=== PATIENT | male | born 1965 | race Caucasian/White ===

== ENCOUNTER 2019-04-20 17:27 | Emergency (ER) | payer BC ==
[~2019-04-20] VITALS: Ht 165.1 cm; Wt 75.8 kg
--- OUTSIDE RECORDS SUMMARY | ~2019-04-20 | XMS | Encounter Summary ---
Demographics + + + | Address | [address] | | | [place] [address] | + + + | Home Phone | | + + + | Preferred Language | Unknown | + + + | Marital Status | Single | + + + | Presybeterian Affiliation | Unknown | + + + | Race | Unknown | + + + | Ethnic Group | Unknown | + + + Author + + + | Author | [facility] | | | and [place] | + + + | Organization | [facility] | | | and [place] | + + + | Address | Unknown | + + + | Phone | Unavailable | + + + Support + + + + + | Name | Relationship | Address | Phone | + + + + + | Ariane Holden | ECON | [address] | | | | | [place] | | | | | [address] | | + + + + + Care Team Providers + +------+ + | Care Executive Search Consultant Name | Role | Phone | + +------+ + | Dane Perea MD | PCP | | + +------+ + Encounter Details +--------+ + + + + | Date | Type | Department | Care Team | Description | +--------+ + + + + | 01/05/ | Documentati | [facility] | Mehrdad, | | | 2019 | on | NEPHROLOGY [place] | [facility] | | | | | [address] | [employer] | | | | | [address] [place], [place] | | | | | | [address] | | | | | | [phone] | | | +--------+ + + + + Social History + +-------+ +--------+------+ | Tobacco Use | Types | Packs/Day | Years | Date | | | | | Used | | + +-------+ +--------+------+ | Never Smoker | | | | | + +-------+ +--------+------+ + + + | Sex Assigned at | Date Recorded | | | | + + + | Not on file | | + + + + + + + | Job Start Date | Occupation | Industry | + + + + | Not on file | Not on file | Not on file | + + + + + + + + | Travel History | Travel Start | Travel End | + + + + + + | No recent travel history available. | + + documented as of this encounter Plan of Treatment Not on filedocumented as of this encounter Procedures + +--------+ + + + | Procedure Name | Priori | Date/Time | Associated Diagnosis | Comments | | | ty | | | | + +--------+ + + + | URIC ACID | Routin | 05/12/2018 | | | | | e | 9:26 AM | | | | | | PST | | | + +--------+ + + + documented in this encounter Results Uric Acid (05/12/2018 9:26 AM PST) + +-------+ + + + | Component | Value | Ref Range | Performed | Pathologist | | | | | At | Signature | + +-------+ + + + | URIC ACID | | | | | | (REF) | | | | | + +-------+ + + + + + | Specimen | + + | Blood | + + documented in this encounter Visit Diagnoses Not on filedocumented in this encounter"
--- OUTSIDE RECORDS SUMMARY | ~2019-04-20 | XMS | Clinical Summary ---
Demographics + + + | Address | [address] | | | [place] [address] | + + + | Home Phone | | + + + | Preferred Language | Unknown | + + + | Marital Status | Single | + + + | Voodoo Affiliation | Unknown | + + + | Race | Unknown | + + + | Ethnic Group | Unknown | + + + Author + + + | Author | [facility] | | | and [place] | + + + | Organization | [facility] | | | and [place] | + + + | Address | Unknown | + + + | Phone | Unavailable | + + + Support + + + + + | Name | Relationship | Address | Phone | + + + + + | Ariane Holden | ECON | [address] | | | | | [place] | | | | | [address] | | + + + + + Care Team Providers + +------+ + | Care Database Software Technician Name | Role | Phone | + +------+ + | Dane Perea MD | PCP | | + +------+ + Allergies No Known Allergies Medications + + + +---------+------+------+-------+ | Medication | Sig | Dispensed | Refills | Star | End | Statu | | | | | | t | Date | s | | | | | | Date | | | + + + +---------+------+------+-------+ | lisinopril | | | 0 | 10/2 | | Activ | | (PRINIVIL, ZESTRIL) | | | | 5/20 | | e | | 20 mg tablet | | | | 17 | | | + + + +---------+------+------+-------+ | metFORMIN | | | 0 | 09/0 | | Activ | | (GLUCOPHAGE) 1000 MG | | | | 1/20 | | e | | tablet | | | | 17 | | | + + + +---------+------+------+-------+ | traZODone | | | 0 | 09/2 | | Activ | | (DESYREL) 50 mg | | | | 9/20 | | e | | tablet | | | | 17 | | | + + + +---------+------+------+-------+ | indomethacin | Take 50 mg by mouth | | 0 | 11/0 | | Activ | | (INDOCIN) 50 MG | 2 (two) times daily | | | 6/20 | | e | | capsule | with meals. | | | 17 | | | + + + +---------+------+------+-------+ | ascorbic acid | Take 1,000 mg by | | 0 | 11/0 | | Activ | | (VITAMIN C) 1000 MG | mouth daily. | | | 6/20 | | e | | tablet | | | | 17 | | | + + + +---------+------+------+-------+ | allopurinol | Take 1 tablet by | 180 | 3 | 11/0 | | Activ | | (ZYLOPRIM) 100 mg | mouth 2 (two) times | tablet | | 6/20 | | e | | tablet | daily. | | | 17 | | | + + + +---------+------+------+-------+ | diclofenac | Apply 2 g topically | | 0 | 12/3 | | Activ | | (VOLTAREN) 1% GEL | 4 times daily. | | | 1/20 | | e | | | | | | 18 | | | + + + +---------+------+------+-------+ | LANTUS SOLOSTAR | inject UP TO 22 | | 0 | 05/1 | | Activ | | 100 UNIT/ML | units subcutaneously | | | 3/20 | | e | | injection (pen) | daily as directed | | | 19 | | | + + + +---------+------+------+-------+ | mometasone | Apply topically | | 0 | | | Activ | | (ELOCON) 0.1 % cream | Daily. | | | | | e | + + + +---------+------+------+-------+ | oxyCODONE HCl | Take 5 mg by mouth. | | 0 | | | Activ | | (OXYCONTIN PO) | | | | | | e | + + + +---------+------+------+-------+ Active Problems + + + | Problem | Noted Date | + + + | Diabetic nephropathy associated with type 2 diabetes mellitus | 11/15/2018 | + + + | Benign essential hypertension | 09/21/2017 | + + + | Fatigue | 03/24/2016 | + + + | Type 2 diabetes mellitus | 08/20/2015 | + + + Encounters +--------+ + + + + | Date | Type | Specialty | Care Team | Description | +--------+ + + + + | 04/08/ | Telephone | Nephrology | Mehrdad, | Other (Appointment | | 2018 | | | Maryjane Burton | reminder call ) | | | | | Mechanical Detailer | | +--------+ + + + + from Last 3 Months Social History + +-------+ +--------+------+ | Tobacco Use | Types | Packs/Day | Years | Date | | | | | Used | | + +-------+ +--------+------+ | Never Smoker | | | | | + +-------+ +--------+------+ + +---+---+---+ | Smokeless Tobacco: | | | | | Never Used | | | | + +---+---+---+ + + | Tobacco Cessation: Counseling Given: No | + + + + +---------+ + | Alcohol Use | Drinks/Week | oz/Week | Comments | + + +---------+ + | Not Currently | | | | + + +---------+ + + + + | Sex Assigned at [...] recent travel history available. | + + Last Filed Vital Signs + + + + + | Vital Sign | Reading | Time Taken | Comments | + + + + + | Blood Pressure | 98/64 | 01/10/2019 9:50 AM | | | | | PDT | | + + + + + | Pulse | 84 | 01/10/2019 9:50 AM | | | | | PDT | | + + + + + | Temperature | 36.4 C (97.6 F) | 03/23/2017 12:21 PM | | | | | PST | | + + + + + | Respiratory Rate | - | - | | + + + + + | Oxygen Saturation | - | - | | + + + + + | Inhaled Oxygen | - | - | | | Concentration | | | | + + + + + | Weight | 80.4 kg (177 lb 3.2 | 01/10/2019 9:50 AM | | | | oz) | PDT | | + + + + + | Height | 167.6 cm (5' 6") | 01/10/2019 9:50 AM | | | | | PDT | | + + + + + | Body Mass Index | 28.6 | 01/10/2019 9:50 AM | | | | | PDT | | + + + + + Plan of Treatment + + + + + | Health Maintenance | Due Date | Last Done | Comments | + + + + + | Hepatitis C | | | | | Screening | 5 | | | + + + + + | Vaccine: | | | | | Pneumococcal 19-64 | 1 | | | | (1 of 1 - PPSV23) | | | | + + + + + | Diabetic Eye Exam | | | | | | 3 | | | + + + + + | Diabetic Foot Exam | | | | | | 3 | | | + + + + + | Vaccine: | | | | | Dtap/Tdap/Td (1 - | 4 | | | | Tdap) | | | | + + + + + | Colorectal Cancer | | | | | Screening | 5 | | | | (Colonoscopy) | | | | + + + + + | Vaccine: Zoster (1 | | | | | of 2) | 5 | | | + + + + + | Hemoglobin A1c | | 02/13/2017 | | | Screening | 7 | | | + + + + + | Statin Therapy | | | | | (optimal intensity) | 9 | | | + + + + + | Vaccine: Influenza | | 03/05/2016, 03/05/2016 | | | (#1) | 9 | | | + + + + + Results Not on filefrom Last 3 Months Insurance +-------+--------+ +--------+-------+---------+------+ | Payer | Benefi | Subscriber | Effect | Phone | Address | Type | | | t Plan | ID | tanner | | | | | | / | | Dates | | | | | | Group | | | | | | +-------+--------+ +--------+-------+---------+------+ | BCBS | BCBS | [id number] | 05/18/19 | | | PPO | | | FEDERA | | 16-Pre | | | | | | L FEP | | sent | | | | +-------+--------+ +--------+-------+---------+------+ + +--------+ +--------+ + + | Guarantor Name | Accoun | Relation to | Date | Phone | Billing Address | | | t Type | Patient | of | | | | | | | | | | + +--------+ +--------+ + + | JaileneCole | Person | Self [birth year] | [address] | | | [place] | | 1966 | [phone] | [place] | | | [place] | | | [address] (Home) | [address] | + +--------+ +--------+ + + Advance Directives + + + + + | Type | Date Recorded | Patient | Explanation | | | | Deputy Brand Inspector | | + + + + + | Power of | | | | | Supervisor Product Inspection | | | | + + + + + | Advance | | | | | Directive | | | | + + + + +
--- OUTSIDE RECORDS SUMMARY | ~2019-04-20 | XMS | Encounter Summary ---
Demographics + + + | Address | [address] | | | [place] [address] | + + + | Home Phone | | + + + | Preferred Language | Unknown | + + + | Marital Status | Single | + + + | Mormon Affiliation | Unknown | + + + | Race | Unknown | + + + | Ethnic Group | Unknown | + + + Author + + + | Author | [facility] | | | and [place] | + + + | Organization | [facility] | | | [...] [place] | | | | | [address] | | + + + + + Care Team Providers + +------+ + | Care Noteman Name | Role | Phone | + +------+ + | Dane Perea MD | PCP | | + +------+ + Reason for Visit +--------+ + | Reason | Comments | +--------+ + | Other | | +--------+ + Encounter Details +--------+ + + + + | Date | Type | Department | Care Team | Description | +--------+ + + + + | 01/05/ | Telephone | [facility] | Cole Granda MD | Other | | 2019 | | [place]PHROLOG[place] | [address] [place] | | | | | [address] [place] | [address] [facility] [place] | | | | | [address] [facility] [place] | [address] | | | | | [address] | | | | | | [phone] | | | +--------+ + + + [...] Not on filedocumented as of this encounter Visit Diagnoses Not on filedocumented in this encounter"
--- OUTSIDE RECORDS SUMMARY | ~2019-04-20 | XMS | Encounter Summary ---
Demographics + + + | Address | [address] | | | [place] [address] | + + + | Home Phone | | + + + | Preferred Language | Unknown | + + + | Marital Status | Single | + + + | Christianity Affiliation | Unknown | + + + | Race | Unknown | + + + | Ethnic Group | Unknown | + + + Author + + + | Author | [facility] | | | and [place] | + + + | Organization | [facility] | | | [...] [place] | | | | | [address] | | + + + + + Care Team Providers + +------+ + | Care Neuro Psych Sales Specialist Name | Role | Phone | + +------+ + | Dane Perea MD | PCP | | + +------+ + Encounter Details +--------+ + + + + | Date | Type | Department | Care Team | Description | +--------+ + + + + | 02/13/ | Orders Only | [facility] | Conversion | | | 2016 | | NEPHROLOGY [place] | Transaction, | | | | | [address] [place] | Provider Unknown | | | | | [address] [place], [place] | | | | | | [address] | (Fax) | | | | | [phone] | | | +--------+ + + + + Social History + +-------+ +--------+------+ | Tobacco Use | Types | Packs/Day | Years | Date | | | | | Used | | + +-------+ +--------+------+ | Never Assessed | | | | | + +-------+ [...] | + +--------+ + + + | LIPID PANEL | Routin | 02/13/2017 | | Results for this | | | e | 8:50 AM | | procedure are in the | | | | PDT | | results section. | + +--------+ + + + | VITAMIN B-12 | Routin | 02/13/2017 | | Results for this | | | e | 8:50 AM | | procedure are in the | | | | PDT | | results section. | + +--------+ + + + | URIC ACID | Routin | 02/13/2017 | | Results for this | | | e | 8:50 AM | | procedure are in the | | | | PDT | | results section. | + +--------+ + + + | TSH | Routin | 02/13/2017 | | Results for this | | | e | 8:50 AM | | procedure are in the | | | | PDT | | results section. | + +--------+ + + + | T4, FREE | Routin | 02/13/2017 | | Results for this | | | e | 8:50 AM | | procedure are in the | | | | PDT | | results section. | + +--------+ + + + | HEMOGLOBIN A1C | Routin | 02/13/2017 | | Results for this | | | e | 8:50 AM | | procedure are in the | | | | PDT | | results section. | + +--------+ + + + | COMPREHENSIVE | Routin | 02/13/2017 | | Results for this | | METABOLIC PANEL | e | 8:50 AM | | procedure are in the | | | | PDT | | results section. | + +--------+ + + + documented in this encounter Results Uric Acid (02/13/2017 8:50 AM PDT) + +---------+ + + + | Component | Value | Ref Range | Performed | Pathologist | | | | | At | Signature | + +---------+ + + + | Uric Acid | 8.8 (A) | 4.4 - 7.6 | EXTERNAL | | | | | | LAB | | + +---------+ + + + + + | Specimen | + + | Blood specimen | | (specimen) | + + + +---------+ + + | Performing | Address | City/State/Zipcode | Phone Number | | Organization | | | | + +---------+ + + | EXTERNAL LAB | | | | + +---------+ + + TSH (02/13/2017 8:50 AM PDT) + +-------+ + + + | Component | Value | Ref Range | Performed | Pathologist | | | | | At | Signature | + +-------+ + + + | TSI | 1.18 | 0.270 - 4.20 | EXTERNAL | | | | | uIU/mL | LAB | | + +-------+ + + + + + | Specimen | + + | Blood specimen | | (specimen) | + + + +---------+ + + | Performing | Address | City/State/Zipcode | Phone Number | | Organization | | | | + +---------+ + + | EXTERNAL LAB | | | | + +---------+ + + T4, Free (02/13/2017 8:50 AM PDT) + +-------+ + + + | Component | Value | Ref Range | Performed | Pathologist | | | | | At | Signature | + +-------+ + + + | FREE T4 | 1.25 | 0.71 - 1.7 | EXTERNAL | | | (REF) | | | LAB | | + +-------+ + + + + + | Specimen | + + | Blood specimen | | (specimen) | + + + +---------+ + + | Performing | Address | City/State/Zipcode | Phone Number | | Organization | | | | + +---------+ + + | EXTERNAL LAB | | | | + +---------+ + + Hemoglobin A1C (02/13/2017 8:50 AM PDT) + + + + + + | Component | Value | Ref Range | Performed | Pathologist | | | | | At | Signature | + + + + + + | Hemoglobin | 10.2 (A) | 4.4 - 6.5 % | EXTERNAL | | | A1c | | | LAB | | + + + + + + + + | Specimen | + + | Blood specimen | | (specimen) | + + + +---------+ + + | Performing | Address | City/State/Zipcode | Phone Number | | Organization | | | | + +---------+ + + | EXTERNAL LAB | | | | + +---------+ + + Vitamin B-12 (02/13/2017 8:50 AM PDT) + +-------+ + + + | Component | Value | Ref Range | Performed | Pathologist | | | | | At | Signature | + +-------+ + + + | VITAMIN | 358.7 | 211 - 946 | EXTERNAL | | | B-12 | | | LAB | | + +-------+ + + + + + | Specimen | + + | Blood specimen | | (specimen) | + + + +---------+ + + | Performing | Address | City/State/Zipcode | Phone Number | | Organization | | | | + +---------+ + + | EXTERNAL LAB | | | | + +---------+ + + Lipid Panel (02/13/2017 8:50 AM PDT) + +---------+ + + + | Component | Value | Ref Range | Performed | Pathologist | | | | | At | Signature | + +---------+ + + + | Cholesterol | 193 | mg/dL | EXTERNAL | | | | | | LAB | | + +---------+ + + + | Triglycerid | 263 (A) | 30 - 150 mg/dL | EXTERNAL | | | es | | | LAB | | + +---------+ + + + | HDL | 59.3 | mg/dl | EXTERNAL | | | | | | LAB | | + +---------+ + + + | LDL | 81 | mg/dL | EXTERNAL | | | Cholesterol | | | LAB | | | , | | | | | | Calculated, | | | | | | External | | | | | + +---------+ + + + | LDl/HDL | | | EXTERNAL | | | Ratio | | | LAB | | + +---------+ + + + | Chol/HDL | 3.3 | | EXTERNAL | | | Ratio | | | LAB | | + +---------+ + + + | VLDL | 53 (A) | 4 - 40 mg/dL | EXTERNAL | | | | | | LAB | | + +---------+ + + + | Non HDL | 134 | | EXTERNAL | | | Chol. | | | LAB | | | (LDL+VLDL) | | | | | + +---------+ + + + + + | Specimen | + + | Blood specimen | | (specimen) | + + + +---------+ + + | Performing | Address | City/State/Zipcode | Phone Number | | Organization | | | | + +---------+ + + | EXTERNAL LAB | | | | + +---------+ + + Comprehensive Metabolic Panel (02/13/2017 8:50 AM PDT) + + + + + + | Component | Value | Ref Range | Performed | Pathologist | | | | | At | Signature | + + + + + + | Glucose, | 200 (A) | 70 - 100 mg/dL | EXTERNAL | | | Fasting | | | LAB | | + + + + + + | BUN | 19 | 6 - 23 mg/dL | EXTERNAL | | | | | | LAB | | + + + + + + | Creatinine | 1.42 (A) | 0.70 - 1.33 | EXTERNAL | | | | | mg/dL | LAB | | + + + + + + | BUN/Creatin | 13.4 | 6.0 - 28.6 | EXTERNAL | | | ine Ratio | | | LAB | | + + + + + + | Calcium | 9.8 | 8.4 - 10.2 | EXTERNAL | | | | | mg/dL | LAB | | + + + + + + | Protein, | 7.2 | 6.0 - 8.0 g/dL | EXTERNAL | | | Total | | | LAB | | + + + + + + | Albumin | 4.6 | 3.5 - 5.0 | EXTERNAL | | | | | | LAB | | + + + + + + | Globulin | 2.7 | 1.8 - 3.5 | EXTERNAL | | | | | | LAB | | + + + + + + | A/G Ratio | 1.7 | 1.1 - 2.4 | EXTERNAL | | | | | | LAB | | + + + + + + | Bilirubin | 0.4 | 0.0 - 1.2 mg/dL | EXTERNAL | | | Total | | | LAB | | + + + + + + | ALP, | 39 | 31 - 120 | EXTERNAL | | | External | | | LAB | | + + + + + + | ALT | 30 | 7 - 52 U/L | EXTERNAL | | | | | | LAB | | + + + + + + | AST | 25 | 13 - 39 U/L | EXTERNAL | | | | | | LAB | | + + + + + + | Na | 140 | 132 - 143 | EXTERNAL | | | | | mmol/L | LAB | | + + + + + + | K | 4.5 | 3.6 - 5.1 | EXTERNAL | | | | | mmol/L | LAB | | + + + + + + | Cl | 103 | 95 - 112 mmol/L | EXTERNAL | | | | | | LAB | | + + + + + + | CO2 | 23 | 19 - 31 mmol/L | EXTERNAL | | | | | | LAB | | + + + + + + | Anion Gap | 18.5 | 7 - 21 mmol/L | EXTERNAL | | | | | | LAB | | + + + + + + | Estimated | 52 (A) | 60 mg/dL | EXTERNAL | | | GFR | | | LAB | | + + + + + + + + | Specimen | + + | Blood specimen | | (specimen) | + + + +---------+ + + | Performing | Address | City/State/Zipcode | Phone Number | | Organization | | | | + +---------+ + + | EXTERNAL LAB | | | | + +---------+ + + documented in this encounter Visit Diagnoses Not on filedocumented in this encounter"
--- OUTSIDE RECORDS SUMMARY | ~2019-04-20 | XMS | Encounter Summary ---
Demographics + + + | Address | [address] | | | [place] [address] | + + + | Home Phone | | + + + | Preferred Language | Unknown | + + + | Marital Status | Single | + + + | Faith Affiliation | Unknown | + + + | Race | Unknown | + + + | Ethnic Group | Unknown | + + + Author + + + | Author | [facility] | | | and [place] | + + + | Organization | [facility] | | | and [...] [place] | | | | | [address] | | + + + + + Care Team Providers + +------+ + | Care Billing Spec Name | Role | Phone | + +------+ + | Dane Perea MD | PCP | | + +------+ + Reason for Visit +--------+ + | Reason | Comments | +--------+ + | Other | | +--------+ + Encounter Details +--------+ + + + + | Date | Type | Department | Care Team | Description | +--------+ + + + + | 01/04/ | Telephone | [facility] | Cole Granda MD | Other | | 2019 | | NEPHROLOGY [place] | [address] [place] | | | | | [address] [place] | [address] [facility] [place] | | | | | [address] [facility] [place] | [address] | | | | | [address] | | | | | | [phone] | | | +--------+ + + + [...]
--- OUTSIDE RECORDS SUMMARY | ~2019-04-20 | XMS | Clinical Summary ---
Demographics + + + | Address | [address] | | | [place] [address] | + + + | Home Phone | | + + + | Preferred Language | Unknown | + + + | Marital Status | Unknown | + + + | Gnosticist Affiliation | Unknown | + + + | Race | Unknown | + + + | Ethnic Group | Unknown | + + + Author + + + | Author | [facility] (Historical as of | | | 01-01-19) | + + + | Organization | [facility] (Historical as of | | | 01-01-19) | + + + | Address | Unknown | + + + | Phone | Unavailable | + + + Support + + + + + | Name | Relationship | Address | Phone | + + + + + | No,Contact | ECON | [address] | | | | | [place] | | | | | [address] | | + + + + + Care Team Providers + +------+ + | Care Product Assurance Engineer Name | Role | Phone | + +------+ + | Dane Perea MD | PP | | + +------+ + Allergies No Known Allergies Current Medications + + +--------+---------+------+------+-------+ | Prescription | Sig. | Disp. | Refills | Star | End | Statu | | | | | | t | Date | s | | | | | | Date | | | + + +--------+---------+------+------+-------+ | lisinopril | | | | 10/2 | | Activ | | (ZESTRIL) 20 MG | | | | 5/20 | | e | | tablet | | | | 17 | | | + + +--------+---------+------+------+-------+ | metFORMIN | | | | 09/0 | | Activ | | (GLUCOPHAGE) 1000 MG | | | | 1/20 | | e | | tablet | | | | 17 | | | + + +--------+---------+------+------+-------+ | traZODone | | | | 09/2 | | Activ | | (DESYREL) 50 MG | | | | 9/20 | | e | | tablet | | | | 17 | | | + + +--------+---------+------+------+-------+ | indomethacin | Take 50 mg by mouth | | | | | Activ | | (INDOCIN) 50 MG | 2 (two) times daily | | | | | e | | capsule | with meals. | | | | | | + + +--------+---------+------+------+-------+ | ascorbic acid | Take 1,000 mg by | | | | | Activ | | (VITAMIN C) 1000 MG | mouth daily. | | | | | e | | tablet | | | | | | | + + +--------+---------+------+------+-------+ | allopurinol | Take 1 tablet by | 180 | 3 | 11/0 | | Activ | | (ZYLOPRIM) 100 MG | mouth 2 (two) times | tablet | | 6/20 | | e | | tablet | daily. | | | 17 | | | + + +--------+---------+------+------+-------+ | atorvastatin | Take 10 mg by mouth | | | | | Activ | | (LIPITOR) 10 MG | nightly. | | | | | e | | tablet | | | | | | | + + +--------+---------+------+------+-------+ | insulin glargine | Inject into the | | | | | Activ | | (LANTUS) 100 UNIT/ML | skin nightly. | | | | | e | | injection | | | | | | | + + +--------+---------+------+------+-------+ | mometasone | Apply topically | | | | | Activ | | (ELOCON) 0.1 % cream | daily. | | | | | e | + + +--------+---------+------+------+-------+ Active Problems No known active problems Social History + +-------+ +--------+------+ | Tobacco Use | Types | Packs/Day | Years | Date | | | | | Used | | + +-------+ +--------+------+ | Never Smoker | | | | | + +-------+ +--------+------+ + +---+---+---+ | Smokeless Tobacco: | | | | | Never Used | | | | + +---+---+---+ + + +---------+ + | Alcohol Use | Drinks/We | oz/Week | Comments | | | ek | | | + + +---------+ + | Yes | 1 Cans | 0.6 | | | | of beer | | | + + +---------+ + + + + | Sex Assigned at | Date Recorded | | | | + + + | Not on file | | + + + Last Filed Vital Signs + + + + | Vital Sign | Reading | Time Taken | + + + + | Blood Pressure | 125/83 | 03/23/2017 12:17 PM PST | + + + + | Pulse | 105 | 03/23/2017 12:17 PM PST | + + + + | Temperature | 36.4 C (97.6 F) | 03/23/2017 12:17 PM PST | + + + + | Respiratory Rate | - | - | + + + + | Oxygen Saturation | 98% | 03/23/2017 12:17 PM PST | + + + + | Inhaled Oxygen | - | - | | Concentration | | | + + + + | Weight | 85.8 kg (189 lb 1.6 | 03/23/2017 12:17 PM PST | | | oz) | | + + + + | Height | 167.6 cm (5' 6") | 03/23/2017 12:17 PM PST | + + + + | Body Mass Index | 30.52 | 03/23/2017 12:17 PM PST | + + + + Plan of Treatment + + + + + | Health Maintenance | Due Date | Last Done | Comments | + + + + + | Vaccine: | | | | | Dtap/Tdap/Td (1 - | 4 | | | | Tdap) | | | | + + + + + | Colon Cancer | | | | | Screening | 5 | | | | (Colonoscopy) | | | | + + + + + | Vaccine: Zoster (1 | | | | | of 2) | 5 | | | + + + + + | Vaccine: Influenza | | | | | (#1) | 9 | | | + + + + + Results Not on filefrom Last 3 Months Insurance +---------+--------+ +------+-------+ + | Payer | Benefi | Subscriber | Type | Phone | Address | | | t Plan | ID | | | | | | / | | | | | | | Group | | | | | +---------+--------+ +------+-------+ + | PREMERA | PREMER | [id number] | | | [address] [address] | | | A BLUE | | | | [place], [place] | | | [place] | | | | [phone] | | | FED | | | | | | | PPO | | | | | +---------+--------+ +------+-------+ + + +--------+ +--------+ + + | Guarantor Name | Accoun | Relation to | Date | Phone | Billing Address | | | t Type | Patient | of | | | | | | | | | | + +--------+ +--------+ + + | COLE LINN | Person | Self [birth year] Home: | [address] | | | [place] | | 1966 | [phone] [place] [address] | | | krystal | | | [phone] | | + +--------+ +--------+ + +
--- OUTSIDE RECORDS SUMMARY | ~2019-04-20 | XMS | Encounter Summary ---
Demographics + + + | Address | [address] | | | [place] [address] | + + + | Home Phone | | + + + | Preferred Language | Unknown | + + + | Marital Status | Single | + + + | Catholic Affiliation | Unknown | + + + | Race | Unknown | + + + | Ethnic Group | Unknown | + + + Author + + + | Author | [facility] | | | and [place] | + + + | Organization | [facility] | | | [...] [place] | | | | | [address] | | + + + + + Care Team Providers + +------+ + | Care Welder Helper Name | Role | Phone | + +------+ + | Dane Perea MD | PCP | | + +------+ + Encounter Details +--------+ + + + + | Date | Type | Department | Care Team | Description | +--------+ + + + + | 03/20/ | Orders Only | [facility] | Babatunde Da Silva, | | | 2016 | | NEPHROLOGY [place] | BAGGAGE CHECKER [address] | | | | | [address] [place] | [address] | | | | | [address] [place], [place] | [place] | | | | | [address] | [address] | | | | | [phone] | [phone] | | | | | | | | +--------+ + + + [...] | + +--------+ + + + | EXTERNAL LAB: CBC | Routin | 03/20/2017 | | Results for this | | | e | 9:13 AM | | procedure are in the | | | | PDT | | results section. | + +--------+ + + + | URINALYSIS WITH | Routin | 03/20/2017 | | Results for this | | MICROSCOPIC IF | e | 9:13 AM | | procedure are in the | | INDICATED | | PDT | | results section. | + +--------+ + + + | PROTEIN/CREATININE | Routin | 03/20/2017 | | Results for this | | RATIO, URINE | e | 9:13 AM | | procedure are in the | | | | PDT | | results section. | + +--------+ + + + | URIC ACID | Routin | 03/20/2017 | | Results for this | | | e | 9:13 AM | | procedure are in the | | | | PDT | | results section. | + +--------+ + + + | MAGNESIUM | Routin | 03/20/2017 | | Results for this | | | e | 9:13 AM | | procedure are in the | | | | PDT | | results section. | + +--------+ + + + | BASIC METABOLIC | Routin | 03/20/2017 | | Results for this | | PANEL | e | 9:13 AM | | procedure are in the | | | | PDT | | results section. | + +--------+ + + + documented in this encounter Results Protein/Creatinine Ratio, Urine (03/20/2017 9:13 AM PDT) + + + + + + | Component | Value | Ref Range | Performed | Pathologist | | | | | At | Signature | + + + + + + | Protein/Cre | 160.7 (A) | 0 - 150 | EXTERNAL | | | at Ratio | | | LAB | | + + + + + + + + | Specimen | + + | Urine specimen | | (specimen) | + + + +---------+ + + | Performing | Address | City/State/Zipcode | Phone Number | | Organization | | | | + +---------+ + + | EXTERNAL LAB | | | | + +---------+ + + Urinalysis with Microscopic if Indicated (03/20/2017 9:13 AM PDT) + + + + + + | Component | Value | Ref Range | Performed | Pathologist | | | | | At | Signature | + + + + + + | Color | Yellow | | EXTERNAL | | | | | | LAB | | + + + + + + | Clarity | Clear | | EXTERNAL | | | | | | LAB | | + + + + + + | Spec Grav, | 1.018 | 1.005 - 1.030 | EXTERNAL | | | Fluid | | | LAB | | + + + + + + | Leukocyte | Negative | | EXTERNAL | | | Esterase, | | | LAB | | | Urine | | | | | + + + + + + | Nitrite, | Negative | | EXTERNAL | | | Urine | | | LAB | | + + + + + + | Urobilinoge | Normal | | EXTERNAL | | | n, Urine | | | LAB | | + + + + + + | Total | Negative | | EXTERNAL | | | Protein | | | LAB | | + + + + + + | pH, Urine | 5 | 5 - 9 | EXTERNAL | | | | | | LAB | | + + + + + + | Blood, | Negative | | EXTERNAL | | | Urine | | | LAB | | + + + + + + | Ketones | Negative | | EXTERNAL | | | | | | LAB | | + + + + + + | Bilirubin, | Negative | | EXTERNAL | | | Urine | | | LAB | | + + + + + + | Glucose, | Comment: 50 | | EXTERNAL | | | Urine | | | LAB | | + + + + + + + + | Specimen | + + | Urine specimen | | (specimen) | + + + +---------+ + + | Performing | Address | City/State/Zipcode | Phone Number | | Organization | | | | + +---------+ + + | EXTERNAL LAB | | | | + +---------+ + + External Lab: CBC (03/20/2017 9:13 AM PDT) + +-------+ + + + | Component | Value | Ref Range | Performed | Pathologist | | | | | At | Signature | + +-------+ + + + | WBC | 8.4 | 4.5 - 11.0 10 | EXTERNAL | | | | | | LAB | | + +-------+ + + + | RED CELL | 4.41 | 4.3 - 5.7 10 | EXTERNAL | | | COUNT | | | LAB | | + +-------+ + + + | Hgb | 13.7 | 13.5 - 18.0 | EXTERNAL | | | | | g/dL | LAB | | + +-------+ + + + | Hematocrit, | 41.0 | 41 - 50 % | EXTERNAL | | | POC | | | LAB | | + +-------+ + + + | MCV | 92.9 | 81 - 99 fL | EXTERNAL | | | | | | LAB | | + +-------+ + + + | MCH | 31 | 27 - 33 pg | EXTERNAL | | | | | | LAB | | + +-------+ + + + | MCHC | 33 | 30 - 36 g/dL | EXTERNAL | | | | | | LAB | | + +-------+ + + + | Platelet | 215 | 140 - 440 K/ L | EXTERNAL | | | Count | | | LAB | | | Plasma | | | | | + +-------+ + + + | RDW-CV | 13.1 | 10.5 - 15.0 % | EXTERNAL | | | | | | LAB | | + +-------+ + + + | MPV | | fL | EXTERNAL | | | | | | LAB | | + +-------+ + + + | Differentia | | | EXTERNAL | | | l Type | | | LAB | | + +-------+ + + + | % Segmented | | % | EXTERNAL | | | | | | LAB | | | Neutrophils | | | | | + +-------+ + + + | % | | % | EXTERNAL | | | Lymphocytes | | | LAB | | + +-------+ + + + | % Monocytes | | % | EXTERNAL | | | | | | LAB | | + +-------+ + + + | % | | % | EXTERNAL | | | Eosinophils | | | LAB | | + +-------+ + + + | % Basophils | | % | EXTERNAL | | | | | | LAB | | + +-------+ + + + | Absolute | | / L | EXTERNAL | | | Segmented | | | LAB | | | Neutrophils | | | | | + +-------+ + + + | Absolute | | / L | EXTERNAL | | | Lymphocytes | | | LAB | | + +-------+ + + + | Absolute | | / L | EXTERNAL | | | Monocytes | | | LAB | | + +-------+ + + + | Absolute | | / L | EXTERNAL | | | Eosinophils | | | LAB | | + +-------+ + + + | Absolute | | / L | EXTERNAL | | | Basophils | | | LAB | | + +-------+ + + + + + | Specimen | + + | Blood specimen | | (specimen) | + + + +---------+ + + | Performing | Address | City/State/Zipcode | Phone Number | | Organization | | | | + +---------+ + + | EXTERNAL LAB | | | | + +---------+ + + Uric Acid (03/20/2017 9:13 AM PDT) + +---------+ + + + | Component | Value | Ref Range | Performed | Pathologist | | | | | At | Signature | + +---------+ + + + | Uric Acid | 9.2 (A) | 4.4 - 7.6 | EXTERNAL [...] | | | + +---------+ + + Magnesium (03/20/2017 9:13 AM PDT) + +-------+ + + + | Component | Value | Ref Range | Performed | Pathologist | | | | | At | Signature | + +-------+ + + + | Magnesium | 1.7 | 1.7 - 2.5 mg/dL | EXTERNAL | | | | [...] | | | + +---------+ + + Basic Metabolic Panel (03/20/2017 9:13 AM PDT) + + + + + + | Component | Value | Ref Range | Performed | Pathologist | | | | | At | Signature | + + + + + + | Glucose, | 182 (A) | 70 - 100 mg/dL | EXTERNAL | | | Fasting | | | LAB | | + + + + + + | BUN | 20 | 6 - 23 mg/dL | EXTERNAL | | | | | | LAB | | + + + + + + | Creatinine | 1.40 (A) | 0.70 - 1.33 | EXTERNAL | | | | | mg/dL | LAB | | + + + + + + | BUN/Creatin | 14.3 | 6.0 - 28.6 | EXTERNAL | | | ine Ratio | | | LAB | | + + + + + + | Calcium | 10.0 | 8.4 - 10.2 | EXTERNAL | | | | | mg/dL | LAB | | + + + + + + | Na | 141 | 132 - 143 | EXTERNAL | | | | | mmol/L | LAB | | + + + + + + | K | 4.6 | 3.6 - 5.1 | EXTERNAL | | | | | mmol/L | LAB | | + + + + + + | Cl | 106 | 95 - 112 mmol/L | EXTERNAL | | | | | | LAB | | + + + + + + | CO2 | 21 | 19 - 31 mmol/L | EXTERNAL | | | | | | LAB | | + + + + + + | Anion Gap | 18.6 | 7 - 21 mmol/L | EXTERNAL | | | | | | LAB | | + + + + + + | Estimated | 53 | mg/dL | EXTERNAL | | | GFR [...]
--- OUTSIDE RECORDS SUMMARY | ~2019-04-20 | XMS | Encounter Summary ---
Demographics + + + | Address | [address] | | | [place] [address] | + + + | Home Phone | | + + + | Preferred Language | Unknown | + + + | Marital Status | Single | + + + | Hinduism Affiliation | Unknown | + + + | Race | Unknown | + + + | Ethnic Group | Unknown | + + + Author + + + | Author | [facility] | | | and [place] | + + + | Organization | [facility] | | | [...] [place] | | | | | [address] | | + + + + + Care Team Providers + +------+ + | Care Print Finisher Name | Role | Phone | + [...] + + | 01/05/ | Telephone | [facility] | Cole Granda MD | Other | | 2019 | | NEPHROLOGY [place] | [address] [place] | | | | | [address] [place] | [address] [facility], [place] | | | | | [address] [facility], [place] | [address] | | | | | [address] | | | | | | [phone] | | | +--------+ + + + [...] as of this encounter Plan of Treatment + +------+--------+ + + | Name | Type | Priori | Associated Diagnoses | Order Schedule | | | | ty | | | + +------+--------+ + + | Microalbumin/Creatin | Lab | Routin | Chronic kidney | Expected: | | ine Ratio, Urine | | e | disease, stage III | 01/06/2019, Expires: | | | | | (moderate) ([facility]) | 01/06/2020 | + +------+--------+ + + | Urinalysis With | Lab | Routin | Chronic kidney | Expected: | | Microscopic | | e | disease, stage III | 01/06/2019, Expires: | | | | | (moderate) ([facility]) | 01/06/2020 | + +------+--------+ + + | Uric Acid | Lab | Routin | Chronic kidney | Expected: | | | | e | disease, stage III | 01/06/2019, Expires: | | | | | (moderate) ([facility]) | 01/06/2020 | + +------+--------+ + + | CBC w/ Auto | Lab | Routin | Chronic kidney | Expected: | | Differential | | e | disease, stage III | 01/06/2019, Expires: | | | | | (moderate) ([facility]) | 01/06/2020 | + +------+--------+ + + | Renal Function Panel | Lab | Routin | Chronic kidney | Expected: | | | | e | disease, stage III | 01/06/2019, Expires: | | | | | (moderate) ([facility]) | 01/06/2020 | + +------+--------+ + + | Parathyroid Hormone, | Lab | Routin | Chronic kidney | Expected: | | Intact | | e | disease, stage III | 01/06/2019, Expires: | | | | | (moderate) ([facility]) | 01/06/2020 | + +------+--------+ + + | Magnesium | Lab | Routin | Chronic kidney | Expected: | | | | e | disease, stage III | 01/06/2019, Expires: | | | | | (moderate) ([facility]) | 01/06/2020 | + +------+--------+ + + documented as of this encounter Visit Diagnoses + + | Diagnosis | + + | Chronic kidney disease, stage III (moderate) ([facility]) - Primary Chronic kidney disease, | | Stage III (moderate) | + + documented in this encounter"
--- OUTSIDE RECORDS SUMMARY | ~2019-04-20 | XMS | Encounter Summary ---
Demographics + + + | Address | [address] | | | [place] [address] | + + + | Home Phone | | + + + | Preferred Language | Unknown | + + + | Marital Status | Single | + + + | Yarsani Affiliation | Unknown | + + + [...] [place] | | | | | [address] | | + + + + + Care Team Providers + +------+ + | Care Bone Tender Name | Role | Phone | + +------+ + | Dane Perea MD | PCP | | + +------+ + Encounter Details +--------+ + + + + | Date | Type | Department | Care Team | Description | +--------+ + + + + | 03/20/ | Orders Only | [facility] | Babatunde Da Silva, | | | 2016 | | NEPHROLOGY [place] | NUTRITION PROFESSOR [address] | | | | | [address] [place] | [address] | | | | | [address] [place], [place] | [place] | | | | | [address] | [address] | | | | | [phone] | [phone] | | | | | | | [...]
--- OUTSIDE RECORDS SUMMARY | ~2019-04-20 | XMS | Encounter Summary ---
Demographics + + + | Address | [address] | | | [place] [address] | + + + | Home Phone | | + + + | Preferred Language | Unknown | + + + | Marital Status | Single | + + + | Zoroastrianism Affiliation | Unknown | + + + | Race | Unknown | + + + | Ethnic Group | Unknown | + + + Author + + + | Author | [facility] | | | and [place] | + + + | Organization | [facility] | | | and [...] [place] | | | | | [address] | | + + + + + Care Team Providers + +------+ + | Care Forensic Accountant Name | Role | Phone | + +------+ + | Dane Perea MD | PCP | | + +------+ + Reason for Visit Evaluate & Treat (Routine) +--------+ + + + + + | Status | Reason | Specialty | Diagnoses / | Referred By | Referred To | | | | | Procedures | Contact | Contact | +--------+ + + + + + | Closed | Continuity | | Diagnoses | Eliazar, | JasvirCole cheema | | | of Care | | Type 2 | Dane | Iva, [address] | | | | | diabetes | MD Noman [address] | [address] [place] | | | | | mellitus | [address] | [address] | | | | | without | [address] | [place], [place] | | | | | complication | [place], | [address] | | | | | s (HCC) | [place] | Phone: | | | | | Essential | [address] | [phone] | | | | | (primary) | Phone: | Fax: | | | | | hypertension | [phone] | [phone] | | | | | Other | Fax: | | | | | | fatigue | [phone] | | | | | | Type 2 | | | | | | | diabetes | | | | | | | mellitus | | | | | | | with | | | | | | | diabetic | | | | | | | nephropathy | | | | | | | ([facility]) | | | +--------+ + + + + + Encounter Details +--------+---------+ + + + | Date | Type | Department | Care Team | Description | +--------+---------+ + + + | 01/10/ | Office | [facility] | Cole Granda MD | Chronic kidney | | 2019 | Visit | NEPHROLOGY [place] | [address] [facility] | disease, stage III | | | | [address] | [address] [facility] [place] | (moderate) (HCC) | | | | [address] | [address] | (Primary Dx); | | | | [place], [place] | | Renovascular | | | | [address] | | hypertension; Type 2 | | | | [phone] | | diabetes mellitus | | | | | | with stage 3 chronic | | | | | | kidney disease, | | | | | | with long-term | | | | | | current use of | | | | | | insulin (HCC); | | | | | | Persistent | | | | | | proteinuria; | | | | | | Idiopathic chronic | | | | | | gout of multiple | | | | | | sites without | | | | | | tophus; | | | | | | Hyperuricemia | +--------+---------+ + + + Social History + +-------+ [...] + + documented as of this encounter Last Filed Vital Signs + + + [...] + + + + | Temperature | - | - | | + [...] | | + + + + + documented in this encounter Patient Instructions Patient Instructions Cole Granda MD - 01/10/2019 9:30 AM PDTDiscussions/Recommendations : I discussed today with Mr. Dent the meaning of his CKD and the interaction of that with h is DM & HTN. I stressed the importance of keeping his BG & BP controlled and avoiding g etting dehydrated if we are to have a chance at helping preserve his renal function. He jack wed good understanding. I gave him instructions on how to chart his blood pressure in the a ppropriate manner at home. He is to call us if they fall outside of the optimal provided ra nge. He will bring his sphygmomanometer for validation once a year. He will strictly abide by a low salt & low purine diet and will avoid all kinds of NSAIDs for analgesia. Also: 1. I will not change any of his meds today. 2. He will report back to me his home BP readings in 2 weeks. At that time, I will decide w hether any change to his vasoactive regimen is warranted. 3. I sent him for a repeat BMP in 1 month. 4. He will continue to F/U with your office regularly. 5. He will have a BMP, CBC, uric acid, iPTH, UTPCR before he comes back in 3 months.Electro nically signed by Cole Granda MD at 01/10/2019 10:51 AM PDT documented in this encounter Progress Notes Cole Granda MD - 01/10/2019 9:30 AM PDT There is no problem list on file for this patient. Dear Dr Perea: Thank you for the opportunity to see Mr. Dent in consult today. As you are familiar with his case, I will not state his past history in detail. Briefly, he is a 53 y.o. male patie nt with past history as delineated above. he is here to be evaluated for his CKD & its asso ciated complications. In 2015 he reports he was seen by a urologist for nephrolithiasis, lit hotripsy was ineffective, was treated via ureteroscopically. November 2016 is creatinine was 1. 74, GFR 42. He has a hx of gout that started in 2003, last flare was in late 11/2018.* He takes Allopur inol 200 mg daily. He is aware of a low purine diet. He takes Indomethacin for the acute fla res (typically 50 mg daily x3 days). The patient has history of hypertension since 2006, Diabetes Mellitus since 2006; his BG a nd BP control has been reportedly adequate; he has history of intermittent exposure to NSAID s. No other exposure to known nephrotoxins. he had recurrent nephrolithiasis in 2016 but non e since. he tells me that he's had no history of urinary retention, gross hematuria or dysur ia. he has no incontinence symptoms. No symptoms of UTI. No history of frequency, nocturia, weak urinary stream, hesitancy, intermittence, incomplete emptying or urgency. he has 0 nigh tly nocturia. No history of passing kidney stones. he has no foamy urine either. his baseli ne Creatinine is 1.4 from 2017. There is no family history of renal genetic diseases such as PKD. he says that he feels 'good ' today. he denies any blurred vision tinnitus, headache, feve r, chills, or cough. No nausea, vomiting, abdominal pain, diarrhea, melena, or hematochezia . No chest pain, palpitation, dizziness, loss of consciousness, orthopnea, paroxysmal noctu rnal dyspnea, or leg edema. The following portions of the patient's history were reviewed and updated as appropriate: a llergies, current medications, past medical history, past social history, past surgical hist ory, family history and problem list. I also reviewed with him the records received from you r office; these were very informative. As in History of Present Illness & in Assessment. All the twelve systems were reviewed and were otherwise negative. Current Outpatient Medications Medication Sig Dispense Refill allopurinol (ZYLOPRIM) 100 mg tablet Take 1 tablet by mouth 2 (two) times daily. 180 ta blet 3 ascorbic acid (VITAMIN C) 1000 MG tablet Take 1,000 mg by mouth daily. diclofenac (VOLTAREN) 1% GEL Apply 2 g topically 4 times daily. indomethacin (INDOCIN) 50 MG capsule Take 50 mg by mouth 2 (two) times daily with meals . LANTUS SOLOSTAR 100 UNIT/ML injection (pen) inject UP TO 22 units subcutaneously daily as directed 0 lisinopril (PRINIVIL, ZESTRIL) 20 mg tablet metFORMIN (GLUCOPHAGE) 1000 MG tablet mometasone (ELOCON) 0.1 % cream Apply topically Daily. oxyCODONE HCl (OXYCONTIN PO) Take 5 mg by mouth. traZODone (DESYREL) 50 mg tablet No current facility-administered medications for this visit. Physical Exam: BP 98/64 | Pulse 84 | Ht 1.676 m (5' 6") | Wt 80.4 kg (177 lb 3.2 oz) | BMI 28.60 kg/m General appearance: Pleasant, not in acute distress. Neck: Supple without tracheal deviation or jugular venous distension. Head and ENT: Head is atraumatic. The oropharynx is without erythema or thrush. Eyes: Anicteric. The extraocular muscle movements are normal. Lungs: Clear to auscultation bilaterally. There are no wheezes. Heart: Regular rate and rhythm without any rub, gallop. No murmur. Abdominal exam: Soft and nontender with normal bowel sounds. Musculoskeletal: No costovertebral angle tenderness bilaterally. Extremities: Warm to touch with no leg edema. There is no cyanosis. Skin: There are no rashes, petechiae, or ecchymosis. Neurological: Awake, alert, and oriented to time, place, and person. Normal gross motor po wer. There is no asterixis. Psychiatric: The patient s behavior is normal. Judgment and thought content are normal. Lab Results Component Value Date BUN 20 03/20/2017 EGFR 53 03/20/2017 NA 139 01/06/2019 K 4.7 01/06/2019 CL 104 01/06/2019 CO2 20 01/06/2019 MG 1.6 (A) 01/06/2019 HGB 13.7 03/20/2017 URICACID 5.2 01/06/2019 WBC 8.4 03/20/2017 CALCIUM 9.4 01/06/2019 ALBUMIN 4.2 01/06/2019 LABPROT 142.7 01/06/2019 Assessment: Mr. Dent is a 53 y.o. male patient with stage III CKD on a background of diabetes and hyp ertension. RENAL FUNCTION: Relatively stable vs 2018; slightly lower GFR vs 2017 BLOOD PRESSURE: Reports it controlled BLOOD SUGAR: Reports it controlled too ELECTROLYTES: okay ANEMIA: minimal VITAMIN D: To be checked thru your office PARATHYROID HORMONE: To be checked URIC ACID: controlled PROTEINURIA: minimal URINALYSIS: No UTI or hematuria VOLUME STATUS: Euvolumic. Discussions/Recommendations: I discussed today with Mr. Dent the meaning of his CKD and the interaction of that with h is DM & HTN. I stressed the importance of keeping his BG & BP controlled and avoiding g etting dehydrated if we are to have a chance at helping preserve his renal function. He jack wed good understanding. I gave him instructions on how to chart his blood pressure in the a ppropriate manner at home. He is to call us if they fall outside of the optimal provided ra nge. He will bring his sphygmomanometer for validation once a year. He will strictly abide by a low salt & low purine diet and will avoid all kinds of NSAIDs for analgesia. Also: 1. I will not change any of his meds today. 2. He will report back to me his home BP readings in 2 weeks. At that time, I will decide w hether any change to his vasoactive regimen is warranted. 3. I sent him for a repeat BMP in 1 month. 4. He will continue to F/U with your office regularly. 5. He will have a BMP, CBC, uric acid, iPTH, UTPCR before he comes back in 3 months. 6. More than 30 minutes of this 60-minute visit was spent in education and counseling. Thank you Dr Perea for the opportunity to see this patient in consult today. Please do not hesitate to call me at any time with questions or concerns. Truly yours, Cole Granda MD [facility] [place]EV[place] documented in this enco unter Plan of Treatment Not on filedocumented as of this encounter Procedures + +--------+ + + + | Procedure Name | Priori | Date/Time | Associated Diagnosis | Comments | | | ty | | | | + +--------+ + + + | LABS - EXTERNAL SCAN | | 01/06/2019 | | Results for this | | | | 12:00 AM | | procedure are in the | | | | PDT | | results section. | + +--------+ + + + documented in this encounter Results LABS - EXTERNAL SCAN (01/06/2019 12:00 AM PDT) + + + | Narrative | Performed At | + + + | Ordered by an | | | unspecified provider. 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
--- OUTSIDE RECORDS SUMMARY | ~2019-04-20 | XMS | Encounter Summary ---
Demographics + + + | Address | [address] | | | [place] [address] | + + + | Home Phone | | + + + | Preferred Language | Unknown | + + + | Marital Status | Single | + + + | Jew Affiliation | Unknown | + + + | Race | Unknown | + + + | Ethnic Group | Unknown | + + + Author + + + | Author | [facility] | | | and [place] | + + + | Organization | [facility] | | | [...] [place] | | | | | [address] | | + + + + + Care Team Providers + +------+ + | Care Machine Shop Supervisor Name | Role | Phone | + +------+ + | Dane Perea MD | PCP | | + +------+ + Encounter Details +--------+ + + + + | Date | Type | Department | Care Team | Description | +--------+ + + + + | 03/23/ | Orders Only | [facility] | Conversion | | | 2017 | | CONVERSION [address] | Transaction, | | | | | [address] | Provider Unknown | | | | | [place], [place] | [phone] | | | | | [address] | | | | | | [phone] | | | +--------+ + + + [...]
--- OUTSIDE RECORDS SUMMARY | ~2019-04-20 | XMS | Encounter Summary ---
Demographics + + + | Address | [address] | | | [place] [address] | + + + | Home Phone | | + + + | Preferred Language | Unknown | + + + | Marital Status | Single | + + + | Tenriism Affiliation | Unknown | + + + | Race | Unknown | + + + | Ethnic Group | Unknown | + + + Author + + + | Author | [facility] | | | and [place] | + + + | Organization | [facility] | | [...] [place] | | | | | [address] | | + + + + + Care Team Providers + +------+ + | Care Special Events Manager Name | Role | Phone | + +------+ + | Dane Perea MD | PCP | | + +------+ + Reason for Visit +--------+ + | Reason | Comments | +--------+ + | Other | Appointment reminder call | +--------+ + Encounter Details +--------+ + + + + | Date | Type | Department | Care Team | Description | +--------+ + + + + | 04/08/ | Telephone | [facility] | Mehrdad, | Other (Appointment | | 2018 | | NEPHROLOGY [place] | Maryjane Burton | reminder call ) | | | | [address] | Watershed Program Manager | | | | | [place] [address] | | | | | | [place] | | | | | | [address] | | | | | | [phone] | | | +--------+ + + + [...]
--- OUTSIDE RECORDS SUMMARY | ~2019-04-20 | XMS | Clinical Summary ---
Demographics + + + | Address | [address] | | | [place] [address] | + + + | Home Phone | | + + + | Preferred Language | Unknown | + + + | Marital Status | Single | + + + | Holiness Affiliation | Unknown | + + + [...] [place] | | | | | [address] | | + + + + + Care Team Providers + +------+ + | Care Metal Plater Name | Role | Phone | + [...] call ) | | | | | Idea Man | | +--------+ + + + + [...] +-------+--------+ +--------+-------+---------+------+ | BCBS | BCBS | [id number] | 05/18/19 | | | PPO | [...] krystal | | | 4 (Home) | [address] | + +--------+ +--------+ + + Advance Directives + + + + + | Type | Date Recorded | Patient | Explanation | | | | Hand Sole Sewer | | + + + + + | Power of | | | | | Puppy Sitter | | | | + + + + + | Advance | | | | | Directive | | | | + + + + +
--- OUTSIDE RECORDS SUMMARY | ~2019-04-20 | XMS | Encounter Summary ---
Demographics + + + | Address | [address] | | | [place] [address] | + + + | Home Phone | | + + + | Preferred Language | Unknown | + + + | Marital Status | Single | + + + | Sabianist Affiliation | Unknown | + + + | Race | Unknown | + + + | Ethnic Group | Unknown | + + + Author + + + | Author | [facility] | | | and [place] | + + + | Organization | [facility] | | | and [...] [place] | | | | | [address] | | + + + + + Care Team Providers + +------+ + | Care Sewer Pipe Cleaner Name | Role | Phone | + [...] | on | NEPHROLOGY [place] | [facility] | | | | | [address] | Morphologist | | | | | [address] [place], [place] | | | | | | [address] | | | | | | [phone] | | | +--------+ + + + [...]
--- OUTSIDE RECORDS SUMMARY | ~2019-04-20 | XMS | Encounter Summary ---
Demographics + + + | Address | [address] | | | [place] [address] | + + + | Home Phone | | + + + | Preferred Language | Unknown | + + + | Marital Status | Single | + + + | Jewish Affiliation | Unknown | + + + | Race | Unknown | + + + | Ethnic Group | Unknown | + + + Author + + + | Author | [facility] | | | and [place] | + + + | Organization | [facility] | | | [...] [place] | | | | | [address] | | + + + + + Care Team Providers + +------+ + | Care Executive Business Coach Name | Role | Phone | + [...] + + | 01/05/ | Telephone | [facility] | Cole Granda MD | Other | | 2019 | | NEPHROLOGY [place] | [address] [place] | | | | | [address] [place] | [address] [facility] [place] | | | | | [address] [facility] [place] | [address] | | | | | [address] | | | | | | [phone] | | | +--------+ + + + [...] Expires: | | | | | (moderate) ([facility]) | 01/06/2020 | + +------+--------+ + + | Urinalysis With | Lab | Routin | Chronic kidney | Expected: | | Microscopic | | e | disease, stage III | 01/06/2019, Expires: | | | | | (moderate) ([facility]) | 01/06/2020 | + +------+--------+ + + | Uric Acid | Lab | Routin | Chronic kidney | Expected: | | | | e | disease, stage III | 01/06/2019, Expires: | | | | | (moderate) ([facility]) | 01/06/2020 | + +------+--------+ + + | CBC w/ Auto | Lab | Routin | Chronic kidney | Expected: | | Differential | | e | disease, stage III | 01/06/2019, Expires: | | | | | (moderate) ([facility]) | 01/06/2020 | + +------+--------+ + + [...] Expires: | | | | | (moderate) ([facility]) | 01/06/2020 | + +------+--------+ + + | Magnesium | Lab | Routin | Chronic kidney | Expected: | | | | e | disease, stage III | 01/06/2019, Expires: | | | | | (moderate) ([facility]) | 01/06/2020 | + +------+--------+ + + documented as of this encounter Visit Diagnoses + + | Diagnosis | + + | Chronic kidney disease, stage III (moderate) ([facility]) - Primary Chronic kidney disease, | | Stage III (moderate) | + + documented in this encounter"
--- OUTSIDE RECORDS SUMMARY | ~2019-04-20 | XMS | Encounter Summary ---
Demographics + + + | Address | [address] | | | [place] [address] | + + + | Home Phone | | + + + | Preferred Language | Unknown | + + + | Marital Status | Single | + + + | Scientologist Affiliation | Unknown | + + + | Race | Unknown | + + + | Ethnic Group | Unknown | + + + Author + + + | Author | [facility] | | | and [place] | + + + | Organization | [facility] | | | [...] [place] | | | | | [address] | | + + + + + Care Team Providers + +------+ + | Care Coat Check Attendant Name | Role | Phone | + +------+ + | Dane Perea MD | PCP | | + +------+ + Encounter Details +--------+ + + + + | Date | Type | Department | Care Team | Description | +--------+ + + + + | 01/11/ | Orders Only | [facility] | Cole Granda MD | Diabetic nephropathy | | 2019 | | NEPHROLOGY [place] | [address] [place] | associated with | | | | [address] [place] | [address] [place], [place] | type 2 diabetes | | | | [address] [place], [place] | [address] | mellitus (HCC) | | | | [address] | | (Primary Dx) | | | | [phone] | | | +--------+ + + + [...] | | + +------+--------+ + + | Basic Metabolic | Lab | Routin | Diabetic | Expected: | | Panel | | e | nephropathy | 01/18/2019, Expires: | | | | | associated with type | 01/12/2020 | | | | | 2 diabetes mellitus | | | | | | (HCC) | | + +------+--------+ + + | Basic Metabolic | Lab | Routin | Diabetic | Expected: | | Panel | | e | nephropathy | 04/13/2019, Expires: | | | | | associated with type | 01/12/2020 | | | | | 2 diabetes mellitus | | | | | | (HCC) | | + +------+--------+ + + | CBC with | Lab | Routin | Diabetic | 1 Occurrences | | Differential | | e | nephropathy | starting 01/12/2019 | | | | | associated with type | until 01/12/2020 | | | | | 2 diabetes mellitus | | | | | | (HCC) | | + +------+--------+ + + | Uric Acid | Lab | Routin | Diabetic | Expected: | | | | e | nephropathy | 04/13/2019, Expires: | | | | | associated with type | 01/12/2020 | | | | | 2 diabetes mellitus | | | | | | (HCC) | | + +------+--------+ + + | Parathyroid Hormone, | Lab | Routin | Diabetic | Expected: | | Intact | | e | nephropathy | 04/13/2019, Expires: | | | | | associated with type | 01/12/2020 | | | | | 2 diabetes mellitus | | | | | | ([facility]) | | + +------+--------+ + + | Protein/Creatinine | Lab | Routin | Diabetic | Expected: | | Ratio, Urine | | e | nephropathy | 04/13/2019, Expires: | | | | | associated with type | 01/12/2020 | | | | | 2 diabetes mellitus | | | | | | ([facility]) | | + +------+--------+ + + documented as of this encounter Visit Diagnoses + + | Diagnosis | + + | Diabetic nephropathy associated with type 2 diabetes mellitus ([facility]) - Primary | + + documented in this encounter"
--- OUTSIDE RECORDS SUMMARY | ~2019-04-20 | XMS | Encounter Summary ---
Demographics + + + | Address | [address] | | | [place] [address] | + + + | Home Phone | | + + + | Preferred Language | Unknown | + + + | Marital Status | Single | + + + | Episcopalian Affiliation | Unknown | + + + | Race | Unknown | + + + | Ethnic Group | Unknown | + + + Author + + + | Author | [facility] | | | and [place] | + + + | Organization | [facility] | | [...] [place] | | | | | [address] | | + + + + + Care Team Providers + +------+ + | Care Trench Trimmer Fine Name | Role | Phone | + [...] + + | 01/04/ | Telephone | [facility] | Cole Granda MD | Other | | 2019 | | NEPHROLOGY [place] | [address] [place] | | | | | [address] [place] | [address] [facility] [place] | | | | | [address] [facility] | [address] | | | | | [address] | | | | | | [phone] | | | +--------+ + + + [...]
--- OUTSIDE RECORDS SUMMARY | ~2019-04-20 | XMS | Encounter Summary ---
Demographics + + + | Address | [address] | | | [place] [address] | + + + | Home Phone | | + + + | Preferred Language | Unknown | + + + | Marital Status | Single | + + + | Scientology Affiliation | Unknown | + + + | Race | Unknown | + + + | Ethnic Group | Unknown | + + + Author + + + | Author | [facility] | | | and [place] | + + + | Organization | [facility] | | | and [...] [place] | | | | | [address] | | + + + + + Care Team Providers + +------+ + | Care Project Asst Name | Role | Phone | + +------+ + | Dane Perea MD | PCP | | + +------+ + Encounter Details +--------+ + + + + | Date | Type | Department | Care Team | Description | +--------+ + + + + | 01/11/ | Orders Only | [facility] | Cole Granda MD | Diabetic nephropathy | | 2019 | | NEPHROLOGY [place] | [address] [place] | associated with | | | | [address] [place] | [address] [place], [place] | type 2 diabetes | | | | [address] [place], [place] | [address] | mellitus (HCC) | | | | [address] | | (Primary Dx) | | | | [phone] | | | +--------+ + + + [...] mellitus | | | | | | ([facility]) | | + +------+--------+ + + | Protein/Creatinine | Lab | Routin | Diabetic | Expected: | | Ratio, Urine | | e | nephropathy | 04/13/2019, Expires: | | | | | associated with type | 01/12/2020 | | | | | 2 diabetes mellitus | | | | | | ([facility]) | | + +------+--------+ + + documented as of this encounter Visit Diagnoses + + | Diagnosis | + + | Diabetic nephropathy associated with type 2 diabetes mellitus ([facility]) - Primary | + + documented in this encounter"
--- OUTSIDE RECORDS SUMMARY | ~2019-04-20 | XMS | Encounter Summary ---
Demographics + + + | Address | [address] | | | [place] [address] | + + + | Home Phone | | + + + | Preferred Language | Unknown | + + + | Marital Status | Single | + + + | Orthodox Affiliation | Unknown | + + + | Race | Unknown | + + + | Ethnic Group | Unknown | + + + Author + + + | Author | [facility] | | | and [place] | + + + | Organization | [facility] | | | [...] [place] | | | | | [address] | | + + + + + Care Team Providers + +------+ + | Care Implementation Coordinator Name | Role | Phone | + [...] | | | | | complication | May, | [address] | | | | | s (HCC) | [place] | Phone: | | | | | Essential | [address] | [phone] | | | | | (primary) | Phone: | Fax: | | | | | hypertension | [phone] | [phone] | | | | | Other | Fax: | | | | | | fatigue | [phone] | | | | | | Type 2 | | | | | | | diabetes | | | | | | | mellitus | | | | | | | with | | | | | | | diabetic | | | | | | | nephropathy | | | | | | | ([facility]) | | | +--------+ + + + + + Encounter Details +--------+---------+ + + + | Date | Type | Department | Care Team | Description | +--------+---------+ + + + | 01/10/ | Office | [facility] | Cole Granda MD | Chronic kidney | | 2019 | Visit | NEPHROLOGY [place] | [address] [facility] | disease, stage III | | | | [address] | [address] [facility] [place] | (moderate) (HCC) | | | | [address] | [address] | (Primary Dx); | | | | [place], [place] | | Renovascular | | | | [address] | | hypertension; Type 2 | | | | [phone] | | diabetes mellitus | | | [...] or concerns. Truly yours, Cole Granda MD [facility] KAT[facility] LEVY documented in this enco [...]
--- OUTSIDE RECORDS SUMMARY | ~2019-04-20 | XMS | Encounter Summary ---
Demographics + + + | Address | [address] | | | [place] [address] | + + + | Home Phone | | + + + | Preferred Language | Unknown | + + + | Marital Status | Single | + + + | Worship Affiliation | Unknown | + + + | Race | Unknown | + + + | Ethnic Group | Unknown | + + + Author + + + | Author | [facility] | | | and [place] | + + + | Organization | [facility] | | | [...] [place] | | | | | [address] | | + + + + + Care Team Providers + +------+ + | Care Hardening Machine Operator Helper Name | Role | Phone | + +------+ + | Dane Perea MD | PCP | | + +------+ + Reason for Visit +---------+ + | Reason | Comments | +---------+ + | Results | 01/06/19 | +---------+ + Encounter Details +--------+ + + + + | Date | Type | Department | Care Team | Description | +--------+ + + + + | 01/10/ | Documentati | [facility] | Cronin, | Results (01/06/19) | | 2019 | on | NEPHROLOGY [place] | [facility] | | | | | [address] | Entry Level Truck Driver | | | | | [place] [facility] | | | | | | [place] | | | | | | [address] | | | | | | [phone] | | | +--------+ + + + [...] +--------+ + + + | EXTERNAL LAB: JENI, | Routin | 01/06/2019 | | Results for this | | INTACT | e | 8:26 AM | | procedure are in the | | | | PDT | | results section. | + +--------+ + + + | MICROALBUMIN/CREATIN | Routin | 01/06/2019 | | Results for this | | INE RATIO, URINE | e | 8:26 AM | | procedure are in the | | RESULT (NON-ORD) | | PDT | | results section. | + +--------+ + + + | CBC W/AUTO | Routin | 01/06/2019 | | Results for this | | DIFFERENTIAL | e | 8:26 AM | | procedure are in the | | | | PDT | | results section. | + +--------+ + + + | PROTEIN/CREATININE | Routin | 01/06/2019 | | Results for this | | RATIO, URINE | e | 8:26 AM | | procedure are in the | | | | PDT | | results section. | + +--------+ + + + | URINALYSIS | Routin | 01/06/2019 | | Results for this | | | e | 8:26 AM | | procedure are in the | | | | PDT | | results section. | + +--------+ + + + | URIC ACID | Routin | 01/06/2019 | | Results for this | | | e | 8:26 AM | | procedure are in the | | | | PDT | | results section. | + +--------+ + + + | MAGNESIUM | Routin | 01/06/2019 | | Results for this | | | e | 8:26 AM | | procedure are in the | | | | PDT | | results section. | + +--------+ + + + | RENAL FUNCTION PANEL | Routin | 01/06/2019 | | Results for this | | | e | 8:26 AM | | procedure are in the | | | | PDT | | results section. | + +--------+ + + + documented in this encounter Results External Lab: PTH, Intact (01/06/2019 8:26 AM PDT) + + + + + + | Component | Value | Ref Range | Performed | Pathologist | | | | | At | Signature | + + + + + + | PTH Intact, | 66.59 (A) | 15 - 65 | | | | External | | | | | + + + + + + + + | Specimen | + + | | + + Protein/Creatinine Ratio, Urine (01/06/2019 8:26 AM PDT) + +-------+ + + + | Component | Value | Ref Range | Performed | Pathologist | | | | | At | Signature | + +-------+ + + + | Protein/Cre | 142.7 | 0 - 150 | | | | at Ratio | | | | | + +-------+ + + + + + | Specimen | + + | Urine | + + Uric Acid (01/06/2019 8:26 AM PDT) + +-------+ + + + | Component | Value | Ref Range | Performed | Pathologist | | | | | At | Signature | + +-------+ + + + | URIC ACID | 5.2 | 4.4 - 7.6 | | | | (REF) | | | | | + +-------+ + + + + + | Specimen | + + | Blood | + + Microalbumin/Creatinine Ratio, Urine Result (01/06/2019 8:26 AM PDT) + +-------+ + + + | Component | Value | Ref Range | Performed | Pathologist | | | | | At | Signature | + +-------+ + + + | Microalb | 11.4 | 0 - 30 | | | | Creat Ratio | | | | | + +-------+ + + + + + | Specimen | + + | Urine | + + Renal Function Panel (01/06/2019 8:26 AM PDT) + + + + + + | Component | Value | Ref Range | Performed | Pathologist | | | | | At | Signature | + + + + + + | Na | 139 | 132 - 143 | | | | | | mmol/L | | | + + + + + + | K | 4.7 | 3.6 - 5.1 | | | | | | mmol/L | | | + + + + + + | Cl | 104 | 95 - 112 mmol/L | | | + + + + + + | CO2 | 20 | 19 - 31 mmol/L | | | + + + + + + | Glucose | 156 (A) | 70 - 100 mg/dL | | | + + + + + + | BUN, | 25 (A) | 6 - 23 | | | | External | | | | | + + + + + + | Creatine, | 1.60 (A) | 0.70 - 1.33 | | | | Serum | | | | | + + + + + + | GFR | 45 (A) | 60 - 140 | | | | ESTIMATE | | | | | + + + + + + | BUN/Creatin | 15.6 | 6.0 - 28.6 | | | | ine Ratio | | | | | + + + + + + | Albumin | 4.2 | 3.5 - 5.0 g/dL | | | + + + + + + | Calcium | 9.4 | 8.5 - 10.3 | | | + + + + + + | PHOSPHORUS | 4.3 | 2.5 - 5.0 | | | + + + + + + + + | Specimen | + + | Blood | + + Magnesium (01/06/2019 8:26 AM PDT) + +---------+ + + + | Component | Value | Ref Range | Performed | Pathologist | | | | | At | Signature | + +---------+ + + + | MG | 1.6 (A) | 1.7 - 2.5 | | | + +---------+ + + + + + | Specimen | + + | Blood | + + CBC w/ Auto Differential (01/06/2019 8:26 AM PDT) + + + + + + | Component | Value | Ref Range | Performed | Pathologist | | | | | At | Signature | + + + + + + | CBC | 10.2 | 4.5 - 11.0 | | | + + + + + + | RBC COUNT | 4 | 4 - 6 | | | + + + + + + | Hemoglobin, | 13.0 (A) | 13.5 - 18.0 | | | | Free, | | | | | | Plasma | | | | | + + + + + + | Hematocrit, | 39.0 (A) | 41 - 50 | | | | BF | | | | | + + + + + + | MCV | 92.8 | 81 - 99 | | | + + + + + + | RDW | 13.4 | 10.5 - 15.0 | | | + + + + + + | MCH | 31 | 27 - 33 | | | + + + + + + | MCHC, POC | 33 | 30 - 36 | | | + + + + + + | Platelet | 218 | 140 - 440 | | | | Count | | | | | | Plasma | | | | | + + + + + + | NEUTROPHILS | 53.9 | 39 - 80 % | | | | BL | | | | | + + + + + + | LYMPHOCYTES | 35.8 | 24 - 44 % | | | | BL | | | | | + + + + + + | MONOCYTES | 6.4 | 0 - 12 | | | | BAL | | | | | + + + + + + | EOSINOPHILS | 3.3 | 0 - 6 % | | | | BL | | | | | + + + + + + | BASOPHILS | 0.6 | 0 - 2 | | | | BAL | | | | | + + + + + + + + | Specimen | + + | Blood | + + Urinalysis (01/06/2019 8:26 AM PDT) + + + + + + | Component | Value | Ref Range | Performed | Pathologist | | | | | At | Signature | + + + + + + | Color | Yellow | | | | + + + + + + | Clarity | Clear | | | | + + + + + + | Specific | 1.013 | 1.001 - 1.030 | | | | [place] | | | | | + + + + + + | pH, Urine | 5.0 | 5.0 - 8.0 | | | + + + + + + | Protein, | Negative | Negative | | | | Urine | | | | | + + + + + + | Glucose, | Negative | Negative | | | | Urine | | | | | + + + + + + | Ketones, | Negative | Negative | | | | Urine | | | | | + + + + + + | Blood, | Negative | Negative | | | | Urine | | | | | + + + + + + | Nitrite, | Negative | Negative | | | | Urine | | | | | + + + + + + | Urobilinoge | Normal | 0.2, Negative, | | | | n, UA, POC | | Normal, < 0.2 | | | | | | mg/dL, 1 mg/dL, | | | | | | < 0.2 E.U./dl, | | | | | | 1.0 E.U./dL, | | | | | | 0.2 mg/dL | | | + + + + + + | Leukocyte | Negative | Negative | | | | Esterase, | | | | | | Urine | | | | | + + + + + + | CASTS | Negative | | | | + + + + + + | WBC | 0 | | | | + + + + + + | RBC, POC | 0 | | | | + + + + + + | EPITHELIAL | 1 | /LPF | | | | CASTS UA | | | | | + + + + + + | CRYSTAL UA | Negative | | | | + + + + + + | Bacteria, | None Seen | None Seen, 1-5, | | | | UA | | Occasional | | | + + + + + + + + | Specimen | + + | Urine | + + documented in this encounter Visit Diagnoses Not on filedocumented in this encounter"
--- OUTSIDE RECORDS SUMMARY | ~2019-04-20 | XMS | Clinical Summary ---
Demographics + + + | Address | [address] | | | [place] [address] | + + + | Home Phone | | + + + | Preferred Language | Unknown | + + + | Marital Status | Unknown | + + + | Zoroastrian Affiliation | Unknown | + + + | Race | Unknown | + + + | Ethnic Group | Unknown | + + + Author + + + | Author | [facility] (Historical as of | | | 01-01-19) | + + + | Organization | [facility] (Historical as of | | | 01-01-19) [...] [place] | | | | | [address] | | + + + + + Care Team Providers + +------+ + | Care Automobile Repair Service Estimator Name | Role | Phone | + [...] +------+-------+ + | PREMERA | PREMER | [id number] | | | [address] [address] | | | A BLUE | | | | [place], [place] | | | CROSS | | | | [address] | | | FED | | | [...] edwar/Nestor | | 1966 | [phone] | [place] [address] | | | krystal | | | [phone] | | + +--------+ +--------+ + +
--- OUTSIDE RECORDS SUMMARY | ~2019-04-20 | XMS | Encounter Summary ---
Demographics + + + | Address | [address] | | | [place] [address] | + + + | Home Phone | | + + + | Preferred Language | Unknown | + + + | Marital Status | Single | + + + | Hindu Affiliation | Unknown | + + + | Race | Unknown | + + + | Ethnic Group | Unknown | + + + Author + + + | Author | [facility] | | | and [place] | + + + | Organization | [facility] [...] [place] | | | | | [address] | | + + + + + Care Team Providers + +------+ + | Care Sergeant Missile Crewman Name | Role | Phone | + +------+ + | Dane Perea MD | PCP | | + +------+ + Encounter Details +--------+ + + + + | Date | Type | Department | Care Team | Description | +--------+ + + + + | 02/13/ | Orders Only | [facility] | Conversion | | | 2016 | | NEPHROLOGY [place] | Transaction, | | | | | [address] | Provider Unknown | | | | | [address] [place], [place] | | | | | | [address] | (Fax) | | | | | [phone] | | | +--------+ + + + [...]
--- OUTSIDE RECORDS SUMMARY | ~2019-04-20 | XMS | Encounter Summary ---
Demographics + + + | Address | [address] | | | [place] [address] | + + + | Home Phone | | + + + | Preferred Language | Unknown | + + + | Marital Status | Single | + + + | Gnosticism Affiliation | Unknown | + + + | Race | Unknown | + + + | Ethnic Group | Unknown | + + + Author + + + | Author | [facility] | | | and [place] | + + + | Organization | [facility] | | | [...] [place] | | | | | [address] | | + + + + + Care Team Providers + +------+ + | Care Bottom Scrubber Name | Role | Phone | + [...] + + | 01/10/ | Documentati | [facility] | Cronin, | Results (01/06/19) | | 2019 | on | NEPHROLOGY [place] | [facility] | | | | | [address] | Egg Tester | | | | | [place] [address] [facility] | | | | | | [place] | | | | | | [address] | | | | | | [phone] | | | +--------+ + + + [...] 1.001 - 1.030 | | | | [place] | | | | | + + [...]
--- OUTSIDE RECORDS SUMMARY | ~2019-04-20 | XMS | Encounter Summary ---
Demographics + + + | Address | [address] | | | [place] [address] | + + + | Home Phone | | + + + | Preferred Language | Unknown | + + + | Marital Status | Single | + + + | Yarsanism Affiliation | Unknown | + + + | Race | Unknown | + + + | Ethnic Group | Unknown | + + + Author + + + | Author | [facility] | | | and [place] | + + + | Organization | [facility] | | [...] [place] | | | | | [address] | | + + + + + Care Team Providers + +------+ + | Care Senior Statistical Programmer Name | Role | Phone | + [...] Provider Unknown | | | | | [place], [place] | [phone] | | | | | [address] | | | | | | [phone] | | | +--------+ + + + [...]
--- OUTSIDE RECORDS SUMMARY | ~2019-04-20 | XMS | Encounter Summary ---
Demographics + + + | Address | [address] | | | [place] [address] | + + + | Home Phone | | + + + | Preferred Language | Unknown | + + + | Marital Status | Single | + + + | Uatsdin Affiliation | Unknown | + + + | Race | Unknown | + + + | Ethnic Group | Unknown | + + + Author + + + | Author | [facility] | | | and [place] | + + + | Organization | [facility] | | [...] [place] | | | | | [address] | | + + + + + Care Team Providers + +------+ + | Care Underwriting Consultant Name | Role | Phone | [...] + + | 01/05/ | Telephone | [facility] | Cole Granda MD | Other | | 2019 | | NEPHROLOGY [place] | [address] [place] | | | | | [address] [place] | [address] [facility] [place] | | | | | [address] [facility] [place] | [address] | | | | | [address] | | | | | | [phone] | | | +--------+ + + + [...]
--- OUTSIDE RECORDS SUMMARY | ~2019-04-20 | XMS | Encounter Summary ---
Demographics + + + | Address | [address] | | | [place] [address] | + + + | Home Phone | | + + + | Preferred Language | Unknown | + + + | Marital Status | Single | + + + | Mormonism Affiliation | Unknown | + + + [...] [place] | | | | | [address] | | + + + + + Care Team Providers + +------+ + | Care Food Products Tester Name | Role | Phone | + [...] + + | 04/08/ | Telephone | [facility] | Mehrdad, | Other (Appointment | | 2018 | | NEPHROLOGY [place] | Maryjane Burton | reminder call ) | | | | [address] | Electrical Wiring Lineman | | | | | [place] [address] | | | | | | [place] | | | | | | [address] | | | | | | [phone] | | | +--------+ + + + [...]
[~2019-04-20 17:27] MED LIST: FLOMAX0.4 MG PO; GLIMEPIRIDE4 MG PO; INDOMETHACIN50 MG PO; KETOROLAC TROME10 MG PO; LANTUS100 UNITS/ SUB-Q; LISINOPRIL20 MG PO; METFORMIN HCL500 MG PO; NORCO 5-325 TA1 EACH PO; NORCO 7.5-3251 EACH PO; PERCOCET 5-3251 EACH PO; PYRIDIUM200 MG PO; TRAZODONE HCL50 MG PO; ULTRAM50 MG PO; ZOFRAN ODT4 MG PO
--- OUTSIDE RECORDS SUMMARY | 2019-04-20 17:30 | XMS ---
PreManage Notification: MONICA LINN Security Client Onboarding Analyst Events No recent Security Events currently on file CRITERIA MET - [facility]WAF Tineo PHONE: [phone] Enrrique Hopkins Current PHONE: Unknown [facility] Tineo PHONE: [phone] Veronica has no Care Guidelines for this patient. Eveline VISIT COUNT (12 MO.) 1 ADELINE Bryson TOTAL 1 NOTE: Visits indicate total known visits. ED/UCC VISIT TRACKING (12 MO.) 04/20/2019 17:27 ADELINE Miguel [place] TYPE: Emergency COMPLAINT: - FLANK PAIN, VOMITING INPATIENT VISIT TRACKING (12 MO.) No inpatient visits to display in this time frame [id number]
[2019-04-20] MEDS ORDERED: METFORMIN HCL1000 MG PO (18:05)
[2019-04-20] MEDS ORDERED: FLOMAX0.4 MG PO (20:50)
== END 2019-04-20 21:03 | disposition home or self-care (01) ==
LOC: ED 17:27
DX: N13.2 Hydronephrosis with renal and ureteral calculous obstruction (principal); I10 Essential (primary) hypertension; Z79.4 Long term (current) use of insulin; Z79.899 Other long term (current) drug therapy
CPT/HCPCS: 74176; 80053; 81001; 85025; 96374; 96375; 99284-25; J1885; J2405